=== PATIENT | male | born 1980 | race Caucasian/White ===

== ENCOUNTER 2019-01-13 00:06 | Inpatient (IN) | payer OTHER ==
[2019-01-13 00:30] LABS: ADD MAN DIFF? NO
[2019-01-13 00:32] LABS: WHITE BLOOD COUNT 23.1 10^3/ul (4.8-10.8)
[2019-01-13 00:32] LABS: ABNORMAL IP MESSAGE 1; BASOPHIL # 0.2 10^3/ul (0.0-0.1); BASOPHILS % 0.8 % (0.0-2.0); EOSINOPHILS # 0.1 10^3/ul (0.0-0.5); EOSINOPHILS % 0.4 % (0.0-7.0); HEMATOCRIT 43.9 % (42.0-52.0); LYMPHOCYTES # 3.6 10^3/ul (0.8-2.9); LYMPHOCYTES % 15.6 % (15.0-51.0); MEAN CORPUSCULAR HEMOGLOBIN 29.3 pg (29.0-33.0); MEAN CORPUSCULAR HGB CONC 31.9 g/dl (32.0-37.0); MEAN CORPUSCULAR VOLUME 91.8 fl (82.0-101.0); MEAN PLATELET VOLUME 8.9 fl (7.4-10.4); MONOCYTE # 3.3 10^3/ul (0.3-0.9); MONOCYTES % 14.1 % (0.0-11.0); NEUTROPHIL # 15.5 10^3/ul (1.6-7.5); NEUTROPHILS % 66.9 % (39.0-77.0); PLATELET COUNT 493 10^3/UL (140-415); POSITIVE DIFF @See below; RED BLOOD COUNT 4.78 10^6/ul (4.70-6.10); RED CELL DISTRIBUTION WIDTH 13.7 % (11.5-14.5)
[2019-01-13 00:43] LABS: ALANINE AMINOTRANSFERASE 104 IU/L (13-69); ALBUMIN 4.4 g/dl (3.3-4.9); ALBUMIN/GLOBULIN RATIO 1.25; ALKALINE PHOSPHATASE 74 IU/L (42-121); ANION GAP 13 (5-13); ASPARTATE AMINO TRANSFERASE 88 IU/L (15-46); BILIRUBIN,INDIRECT 0.7 mg/dl (0-1.1); BILIRUBIN,TOTAL 0.7 mg/dl (0.2-1.3); BLOOD UREA NITROGEN 13 mg/dl (7-20); CALCIUM 9.9 mg/dl (8.4-10.2); CARBON DIOXIDE 31 mmol/L (21-31); CHLORIDE 95 mmol/L (97-110); CREATININE 1.09 mg/dl (0.61-1.24); Estimated GFR > 60 mL/min (>60); GLUCOSE 116 mg/dl (70-220); POTASSIUM 5.2 mmol/L (3.5-5.1); SODIUM 139 mmol/L (135-144); TOTAL PROTEIN 7.9 g/dl (6.1-8.1)
[2019-01-13 00:49] LABS: INR 0.81; PROTIME 11.3 Sec (11.9-14.9); PT RATIO 0.9
[2019-01-13 00:50] LABS: PARTIAL THROMBOPLASTIN TIME 21.2 Sec (23.0-35.0)
[2019-01-13] MEDS: morphine 4 MG/ML VIAL IV ×2 (01:02→01:40)
[2019-01-13] MEDS: ONDANSETRON 4 MG INJ IV (01:02)
[2019-01-13] MEDS: SOD CHLORIDE 0.9% 100 ML (01:11)
[2019-01-13] MEDS: IOHEXOL 100 ML (01:12)
[2019-01-13] MEDS ORDERED: ETOMIDATE 20 MG INJ (01:57)
[2019-01-13] MEDS ORDERED: PROPOFOL 100 ML (02:09)
[2019-01-13] MEDS: PROPOFOL 100 ML IV ×6 (02:09→18:30)
[2019-01-13 02:53] LABS: ADD MAN DIFF? NO
[2019-01-13 02:56] LABS: WHITE BLOOD COUNT 16.8 10^3/ul (4.8-10.8)
[2019-01-13 02:56] LABS: ABNORMAL IP MESSAGE 1; BASOPHIL # 0.1 10^3/ul (0.0-0.1); BASOPHILS % 0.5 % (0.0-2.0); EOSINOPHILS # 0.1 10^3/ul (0.0-0.5); EOSINOPHILS % 0.3 % (0.0-7.0); HEMATOCRIT 32.7 % (42.0-52.0); HEMOGLOBIN 10.2 g/dl (14.0-18.0); LYMPHOCYTES # 2.1 10^3/ul (0.8-2.9); LYMPHOCYTES % 12.7 % (15.0-51.0); MEAN CORPUSCULAR HEMOGLOBIN 29.9 pg (29.0-33.0); MEAN CORPUSCULAR HGB CONC 31.2 g/dl (32.0-37.0); MEAN CORPUSCULAR VOLUME 95.9 fl (82.0-101.0); MEAN PLATELET VOLUME 9.2 fl (7.4-10.4); MONOCYTE # 2.4 10^3/ul (0.3-0.9); MONOCYTES % 14.4 % (0.0-11.0); NEUTROPHIL # 11.8 10^3/ul (1.6-7.5); NEUTROPHILS % 70.4 % (39.0-77.0); PLATELET COUNT 324 10^3/UL (140-415); POSITIVE DIFF @See below; RED BLOOD COUNT 3.41 10^6/ul (4.70-6.10); RED CELL DISTRIBUTION WIDTH 13.9 % (11.5-14.5)
[2019-01-13] MEDS: VANCOMYCIN HCL 1.5 GM in SOD CHLORIDE 0.9% 250 ML IVPB ×2 (03:00→16:17)
[2019-01-13] MEDS: SODIUM CHLORIDE 0.9% 1L BAG IV* (03:12)
[2019-01-13 03:14] LABS: ALANINE AMINOTRANSFERASE 73 IU/L (13-69); ALBUMIN 2.9 g/dl (3.3-4.9); ALBUMIN/GLOBULIN RATIO 1.16; ALKALINE PHOSPHATASE 51 IU/L (42-121); ANION GAP 8 (5-13); ASPARTATE AMINO TRANSFERASE 50 IU/L (15-46); BILIRUBIN,INDIRECT 0.3 mg/dl (0-1.1); BILIRUBIN,TOTAL 0.3 mg/dl (0.2-1.3); BLOOD UREA NITROGEN 12 mg/dl (7-20); CALCIUM 7.6 mg/dl (8.4-10.2); CARBON DIOXIDE 23 mmol/L (21-31); CHLORIDE 107 mmol/L (97-110); CREATININE 0.94 mg/dl (0.61-1.24); Estimated GFR > 60 mL/min (>60); GLUCOSE 86 mg/dl (70-220); SODIUM 138 mmol/L (135-144); TOTAL PROTEIN 5.4 g/dl (6.1-8.1)
[2019-01-13 03:17] LABS: LACTIC ACID 2.6 mmol/L (0.5-2.0)
[2019-01-13] MEDS: PIPER-TAZO 3.375 GM IV (PMX) 100 ML IVPB ×4 (03:20→17:29)
[2019-01-13 03:25] LABS: TROPONIN-I < 0.012 ng/ml (0.000-0.120)
[2019-01-13 03:30] LABS: INR 0.99; PROTIME 13.2 Sec (11.9-14.9)
[2019-01-13] MEDS ORDERED: DIPHTH/TET/ACEL PERTUSS (ADULT) 0.5 ML VIAL IM* (03:30)
[2019-01-13 03:32] LABS: PARTIAL THROMBOPLASTIN TIME 23.3 Sec (23.0-35.0)
[2019-01-13] MEDS ORDERED: VANCOMYCIN IV PER PHARMACY XX (04:00)
[2019-01-13 04:19] LABS: HEPATITIS B SURFACE ANTIGEN NEGATIVE (NEGATIVE)
[2019-01-13] MEDS ORDERED: ROCURONIUM 50 MG INJ (04:27)
[2019-01-13] MEDS ORDERED: NA BICARBONATE 8.4% 50 ML SYG (04:27)
[2019-01-13] MEDS ORDERED: DEXAMETHASONE 4 MG/ML 5 ML INJ (04:29)
[2019-01-13] MEDS ORDERED: ONDANSETRON 4 MG INJ (04:29)
[2019-01-13] MEDS ORDERED: FAMOTIDINE 20 MG INJ (04:29)
[2019-01-13 04:36] LABS: HEPATITIS C VIRAL ANTIBODY NEGATIVE (NEGATIVE); HIV 1&2 ANTIBODY NEGATIVE (NEGATIVE)
[2019-01-13 04:42] LABS: IMMEDIATE SPIN CROSSMATCH 1 4
[2019-01-13] MEDS ORDERED: PHENYLephrine (100 MCG/ML) 5ML SYG (04:51)
[2019-01-13 05:06] LABS: HEPATITIS B SURFACE ANTIBODY POSITIVE (NEGATIVE)
[2019-01-13] MEDS ORDERED: NEOMYC/POLYMYX/BACIT 30 GM OINT (05:19)
[2019-01-13] MEDS ORDERED: FENTAnyl 50 MCG/ML VIAL (05:23)
[2019-01-13] MEDS ORDERED: ALBUTEROL 0.083% (NEB) 2.5 MG/3 ML AMP HHN (05:30)
[2019-01-13] MEDS ORDERED: FENTAnyl 50 MCG/ML VIAL IV (05:30)
[2019-01-13] MEDS ORDERED: EPHEDrine SULFATE 50 MG/5 ML SYG IV (05:30)
[2019-01-13] MEDS ORDERED: ONDANSETRON 4 MG INJ IV (05:30)
[2019-01-13] MEDS ORDERED: HYDROmorphONE 0.5 MG/0.5 ML SYG IV (05:30)
[2019-01-13] MEDS: SOD CHLORIDE 0.9% 1,000 ML IV ×3 (06:17→19:47)
[2019-01-13] MEDS ORDERED: HYDROmorphONE 1 MG/ML SYG (06:31)
[2019-01-13] MEDS: PANTOPRAZOLE 40 MG INJ IV (06:34)
[2019-01-13] MEDS: HYDROmorphONE 1 MG/ML SYG IV (06:34)
[2019-01-13] MEDS ORDERED: PROPOFOL 200 MG INJ (07:00)
[2019-01-13] MEDS ORDERED: SUCCINYLCHOLINE CHLORIDE 100 MG/5 ML SYG IV (07:00)
[2019-01-13 07:17] LABS: WHITE BLOOD COUNT 23.2 10^3/ul (4.8-10.8)
[2019-01-13 07:17] LABS: ABNORMAL IP MESSAGE 1; HEMATOCRIT 31.5 % (42.0-52.0); HEMOGLOBIN 9.9 g/dl (14.0-18.0); MEAN CORPUSCULAR HEMOGLOBIN 29.5 pg (29.0-33.0); MEAN CORPUSCULAR HGB CONC 31.4 g/dl (32.0-37.0); MEAN CORPUSCULAR VOLUME 93.8 fl (82.0-101.0); MEAN PLATELET VOLUME 9.1 fl (7.4-10.4); PLATELET COUNT 341 10^3/UL (140-415); POSITIVE DIFF @See below; RED BLOOD COUNT 3.36 10^6/ul (4.70-6.10); RED CELL DISTRIBUTION WIDTH 14.3 % (11.5-14.5)
[2019-01-13 07:27] LABS: ADD MAN DIFF? YES
[2019-01-13 07:37] LABS: ANION GAP 7 (5-13); BLOOD UREA NITROGEN 11 mg/dl (7-20); CARBON DIOXIDE 24 mmol/L (21-31); CHLORIDE 108 mmol/L (97-110); CREATININE 0.82 mg/dl (0.61-1.24); Estimated GFR > 60 mL/min (>60); GLUCOSE 116 mg/dl (70-220); POTASSIUM 4.6 mmol/L (3.5-5.1); SODIUM 139 mmol/L (135-144)
[2019-01-13 07:38] LABS: INR 1.01; PARTIAL THROMBOPLASTIN TIME 25.5 Sec (23.0-35.0); PROTIME 13.4 Sec (11.9-14.9)
[2019-01-13] MEDS: FENTAnyl (DRIP) 1000 mcg/100mL 100 ML IV ×2 (07:41→16:17)
[2019-01-13 07:43] LABS: LACTIC ACID 2.8 mmol/L (0.5-2.0)
[2019-01-13 08:32] LABS: ANISOCYTOSIS 1+ (0-0); BAND NEUTROPHILS #M 3.9 10^3/ul (0.0-0.6); BAND NEUTROPHILS % (M) 17 % (0-4); BASOPHIL #M 0.2 10^3/ul (0.0-0.0); BASOPHILS % (M) 1 % (0-2); LYMPHOCYTES #M 1.6 10^3/ul (0.8-2.9); LYMPHOCYTES % (M) 7 % (15-51); METAMYELOCYTES #M 0.4 10^3/ul (0.0-0.0); METAMYELOCYTES %M 2 % (0-0); MICROCYTOSIS 1+ (0-0); MONOCYTE #M 1.3 10^3/ul (0.3-0.9); MONOCYTES % (M) 6 % (0-11); MYELOCYTES #M 0.2 10^3/ul (0.0-0.0); MYELOCYTES % (M) 1 % (0-0); OVALOCYTES 1+ (0-0); PLATELET ESTIMATE NORMAL; POIKILOCYTOSIS 1+ (0-0); POLYCHROMASIA 1+ (0-0); SEG NEUT #M 16.2 10^3/ul (1.6-7.5); SEGMENTED NEUTROPHILS (M) % 66 % (39-77); SMUDGE%M 4 % (0-0)
[2019-01-13 08:35] LABS: AADO2 Arterial 148.5 mmHg (7.0-24.0); Allen Test ACCEPTAB; Arterial Base Excess -2.5 mmol/L (-3.0-3); Arterial Blood Gas Oxygen Sat 98.4 mmHG (95.0-98.0); Arterial COHb 0.3 % (0.0-3.0); Arterial Fraction of Oxyhgb 97.8 % (93.0-99.0); Arterial HCO3 23.4 mmol/L (22.0-26.0); Arterial MetHb 0.3 % (0.0-1.5); Arterial pCO2 45.3 mmhg (35-45); MODE VENT - AC; Site Right Radial
[2019-01-13 11:40] LABS: ADD UMIC YES; UR ASCORBIC ACID 20 mg/dL (NEGATIVE); UR BILIRUBIN (Dip) NEGATIVE (NEGATIVE); UR BLOOD (Dip) 3+ mg/dL (NEGATIVE); UR CLARITY SLIGHTLY CLOUDY (CLEAR); UR COLOR YELLOW (YELLOW); UR GLUCOSE (Dip) NEGATIVE (NEGATIVE); UR KETONES (Dip) NEGATIVE (NEGATIVE); UR LEUKOCYTE ESTERASE (Dip) NEGATIVE Leu/ul (NEGATIVE); UR NITRITE (Dip) NEGATIVE (NEGATIVE); UR RBC > 182 /HPF (0-5); UR SPECIFIC GRAVITY (Dip) 1.029 (1.003-1.030); UR TOTAL PROTEIN (Dip) NEGATIVE (NEGATIVE); UR UROBILINOGEN (Dip) NEGATIVE (NEGATIVE); UR WBC 2 /HPF (0-5)
[2019-01-13 12:48] LABS: IONIZED CALCIUM 0.9 mmol/L (1.1-1.4)
[2019-01-13] MEDS: MIDAZOLAM (DRIP) 50 mg/50 mL 50 ML IV ×2 (16:13→21:37)
[2019-01-13] MEDS: FAMOTIDINE 20 MG INJ IV (22:07)
[2019-01-13] MEDS: DOCUSATE SODIUM 100 MG CAP PO (22:07)
[2019-01-14] MEDS: PIPER-TAZO 3.375 GM IV (PMX) 100 ML IVPB ×5 (01:05→23:55)
[2019-01-14] MEDS: MIDAZOLAM (DRIP) 50 mg/50 mL 50 ML IV ×5 (01:18→23:55)
[2019-01-14] MEDS: VANCOMYCIN HCL 1.5 GM in SOD CHLORIDE 0.9% 250 ML IVPB ×2 (03:24→15:05)
[2019-01-14] MEDS: FENTAnyl (DRIP) 1000 mcg/100mL 100 ML IV ×2 (03:33→15:00)
[2019-01-14 05:43] LABS: ADD MAN DIFF? NO
[2019-01-14 06:22] LABS: LACTIC ACID 1.6 mmol/L (0.5-2.0)
[2019-01-14] MEDS: PROPOFOL 100 ML IV ×2 (06:30→07:48)
[2019-01-14] MEDS: ONDANSETRON 4 MG INJ IV (06:48)
[2019-01-14 06:51] LABS: POTASSIUM 3.8 mmol/L (3.5-5.1)
[2019-01-14 06:52] LABS: ANION GAP 3 (5-13); BLOOD UREA NITROGEN 16 mg/dl (7-20); CALCIUM 7.2 mg/dl (8.4-10.2); CARBON DIOXIDE 29 mmol/L (21-31); CHLORIDE 106 mmol/L (97-110); CREATININE 0.86 mg/dl (0.61-1.24); Estimated GFR > 60 mL/min (>60); GLUCOSE 110 mg/dl (70-220); MAGNESIUM 2.4 mg/dl (1.7-2.5); PHOSPHORUS 3.3 mg/dl (2.5-4.9); SODIUM 138 mmol/L (135-144)
[2019-01-14 07:02] LABS: ABNORMAL IP MESSAGE 1; BASOPHILS % 0.2 % (0.0-2.0); EOSINOPHILS % 0.1 % (0.0-7.0); HEMATOCRIT 19.4 % (42.0-52.0); LYMPHOCYTES # 1.7 10^3/ul (0.8-2.9); MEAN CORPUSCULAR HEMOGLOBIN 30.1 pg (29.0-33.0); MEAN CORPUSCULAR HGB CONC 32.5 g/dl (32.0-37.0); MEAN CORPUSCULAR VOLUME 92.8 fl (82.0-101.0); MEAN PLATELET VOLUME 9.2 fl (7.4-10.4); MONOCYTE # 1.8 10^3/ul (0.3-0.9); MONOCYTES % 13.7 % (0.0-11.0); NEUTROPHIL # 9.2 10^3/ul (1.6-7.5); NEUTROPHILS % 70.9 % (39.0-77.0); PLATELET COUNT 237 10^3/UL (140-415); POSITIVE DIFF @See below; RED BLOOD COUNT 2.09 10^6/ul (4.70-6.10); RED CELL DISTRIBUTION WIDTH 13.9 % (11.5-14.5)
[2019-01-14 07:14] LABS: HEMOGLOBIN 6.3 g/dl (14.0-18.0)
[2019-01-14 07:26] LABS: AADO2 Arterial 84.6 mmHg (7.0-24.0); Allen Test ACCEPTAB; Arterial Base Excess 6.1 mmol/L (-3.0-3); Arterial Blood Gas Oxygen Sat 98.4 mmHG (95.0-98.0); Arterial COHb 0.3 % (0.0-3.0); Arterial Fraction of Oxyhgb 97.5 % (93.0-99.0); Arterial HCO3 30.9 mmol/L (22.0-26.0); Arterial MetHb 0.6 % (0.0-1.5); Arterial pCO2 46.8 mmhg (35-45); MODE VENT - AC; Site Right Radial
[2019-01-14] MEDS: FAMOTIDINE 20 MG INJ IV ×2 (08:55→21:53)
[2019-01-14] MEDS: DOCUSATE SODIUM 100 MG CAP PO ×2 (08:55→21:53)
[2019-01-14] MEDS: SOD CHLORIDE 0.9% 1,000 ML IV ×2 (10:06→17:54)
[2019-01-14] MEDS: CALCIUM GLUCONATE 10% 2 GM in DEXTROSE 5% 100 ML IVPB (10:38)
[2019-01-14 17:22] LABS: HEMATOCRIT 23.6 % (42.0-52.0); HEMOGLOBIN 7.9 g/dl (14.0-18.0)
[2019-01-15] MEDS: FENTAnyl (DRIP) 1000 mcg/100mL 100 ML IV ×2 (02:13→09:30)
[2019-01-15 03:02] LABS: VANCOMYCIN,TROUGH 13.7 ug/ml (10.0-20.0)
[2019-01-15] MEDS: VANCOMYCIN HCL 1.5 GM in SOD CHLORIDE 0.9% 250 ML IVPB (03:58)
[2019-01-15] MEDS: LORAZEPAM 2 MG INJ IV (04:17)
[2019-01-15] MEDS: MIDAZOLAM (DRIP) 50 mg/50 mL 50 ML IV ×4 (04:19→23:24)
[2019-01-15 05:32] LABS: ADD MAN DIFF? NO
[2019-01-15 05:39] LABS: WHITE BLOOD COUNT 9.3 10^3/ul (4.8-10.8)
[2019-01-15 05:39] LABS: BASOPHILS % 0.3 % (0.0-2.0); EOSINOPHILS # 0.1 10^3/ul (0.0-0.5); EOSINOPHILS % 0.9 % (0.0-7.0); HEMATOCRIT 22.8 % (42.0-52.0); HEMOGLOBIN 7.7 g/dl (14.0-18.0); LYMPHOCYTES # 2.3 10^3/ul (0.8-2.9); LYMPHOCYTES % 24.9 % (15.0-51.0); MEAN CORPUSCULAR HEMOGLOBIN 30.7 pg (29.0-33.0); MEAN CORPUSCULAR HGB CONC 33.8 g/dl (32.0-37.0); MEAN CORPUSCULAR VOLUME 90.8 fl (82.0-101.0); MEAN PLATELET VOLUME 9.6 fl (7.4-10.4); MONOCYTE # 1.2 10^3/ul (0.3-0.9); MONOCYTES % 12.4 % (0.0-11.0); NEUTROPHIL # 5.3 10^3/ul (1.6-7.5); NEUTROPHILS % 57.3 % (39.0-77.0); NUCLEATED RED BLOOD CELLS% 0.2 /100WBC (0.0-0.0); PLATELET COUNT 201 10^3/UL (140-415); RED BLOOD COUNT 2.51 10^6/ul (4.70-6.10); RED CELL DISTRIBUTION WIDTH 14.6 % (11.5-14.5)
[2019-01-15] MEDS: SOD CHLORIDE 0.9% 1,000 ML IV ×2 (05:56→16:00)
[2019-01-15] MEDS: PIPER-TAZO 3.375 GM IV (PMX) 100 ML IVPB ×4 (05:59→23:24)
[2019-01-15 06:15] LABS: MAGNESIUM 2.4 mg/dl (1.7-2.5)
[2019-01-15 06:22] LABS: ALANINE AMINOTRANSFERASE 30 IU/L (13-69); ALBUMIN 2.6 g/dl (3.3-4.9); ALBUMIN/GLOBULIN RATIO 1.04; ALKALINE PHOSPHATASE 40 IU/L (42-121); ANION GAP 6 (5-13); ASPARTATE AMINO TRANSFERASE 17 IU/L (15-46); BILIRUBIN,INDIRECT 0.3 mg/dl (0-1.1); BILIRUBIN,TOTAL 0.3 mg/dl (0.2-1.3); BLOOD UREA NITROGEN 16 mg/dl (7-20); CALCIUM 7.7 mg/dl (8.4-10.2); CARBON DIOXIDE 30 mmol/L (21-31); CHLORIDE 104 mmol/L (97-110); CREATININE 0.99 mg/dl (0.61-1.24); Estimated GFR > 60 mL/min (>60); GLUCOSE 87 mg/dl (70-220); POTASSIUM 3.9 mmol/L (3.5-5.1); SODIUM 140 mmol/L (135-144); TOTAL PROTEIN 5.1 g/dl (6.1-8.1)
[2019-01-15] MEDS: PROPOFOL 100 ML IV ×2 (06:30→18:04)
[2019-01-15] MEDS: DOCUSATE SODIUM 100 MG CAP PO ×2 (09:19→20:45)
[2019-01-15] MEDS: FAMOTIDINE 20 MG INJ IV ×2 (09:28→20:45)
[2019-01-15] MEDS: POTASSIUM PHOSPHATE 15 MM in SOD CHLORIDE 0.9% 250 ML IVPB (17:47)
[2019-01-16] MEDS: PIPER-TAZO 3.375 GM IV (PMX) 100 ML IVPB ×3 (05:26→18:15)
[2019-01-16] MEDS: FENTAnyl (DRIP) 1000 mcg/100mL 100 ML IV (05:31)
[2019-01-16 05:49] LABS: ADD MAN DIFF? NO
[2019-01-16 05:51] LABS: WHITE BLOOD COUNT 8.2 10^3/ul (4.8-10.8)
[2019-01-16 05:51] LABS: BASOPHILS % 0.4 % (0.0-2.0); EOSINOPHILS # 0.1 10^3/ul (0.0-0.5); EOSINOPHILS % 1.3 % (0.0-7.0); HEMATOCRIT 24.6 % (42.0-52.0); HEMOGLOBIN 8.1 g/dl (14.0-18.0); LYMPHOCYTES # 2.4 10^3/ul (0.8-2.9); LYMPHOCYTES % 29.6 % (15.0-51.0); MEAN CORPUSCULAR HEMOGLOBIN 29.8 pg (29.0-33.0); MEAN CORPUSCULAR HGB CONC 32.9 g/dl (32.0-37.0); MEAN CORPUSCULAR VOLUME 90.4 fl (82.0-101.0); MEAN PLATELET VOLUME 9.1 fl (7.4-10.4); MONOCYTE # 0.9 10^3/ul (0.3-0.9); MONOCYTES % 10.8 % (0.0-11.0); NEUTROPHIL # 4.4 10^3/ul (1.6-7.5); NEUTROPHILS % 53.6 % (39.0-77.0); PLATELET COUNT 231 10^3/UL (140-415); RED BLOOD COUNT 2.72 10^6/ul (4.70-6.10); RED CELL DISTRIBUTION WIDTH 14.3 % (11.5-14.5)
[2019-01-16] MEDS: PROPOFOL 100 ML IV ×2 (06:30→18:15)
[2019-01-16] MEDS: MIDAZOLAM (DRIP) 50 mg/50 mL 50 ML IV (06:31)
[2019-01-16 06:56] LABS: ANION GAP 5 (5-13); BLOOD UREA NITROGEN 14 mg/dl (7-20); CALCIUM 8.2 mg/dl (8.4-10.2); CARBON DIOXIDE 29 mmol/L (21-31); CHLORIDE 106 mmol/L (97-110); CREATININE 1.08 mg/dl (0.61-1.24); Estimated GFR > 60 mL/min (>60); GLUCOSE 93 mg/dl (70-220); POTASSIUM 3.7 mmol/L (3.5-5.1); SODIUM 140 mmol/L (135-144)
[2019-01-16 07:02] LABS: PHOSPHORUS 3.5 mg/dl (2.5-4.9)
[2019-01-16 07:02] LABS: MAGNESIUM 2.3 mg/dl (1.7-2.5)
[2019-01-16] MEDS: FAMOTIDINE 20 MG INJ IV ×2 (09:00→21:17)
[2019-01-16 11:43] LABS: AADO2 Arterial 63.6 mmHg (7.0-24.0); Allen Test ACCEPTAB; Arterial Base Excess 4.3 mmol/L (-3.0-3); Arterial Blood Gas Oxygen Sat 97.1 mmHG (95.0-98.0); Arterial COHb 0.3 % (0.0-3.0); Arterial Fraction of Oxyhgb 96.4 % (93.0-99.0); Arterial HCO3 28.9 mmol/L (22.0-26.0); Arterial MetHb 0.4 % (0.0-1.5); Arterial pCO2 43.5 mmhg (35-45); Blood Gas PS 10; MODE VENT - CPAP; Site Right Radial
[2019-01-16] MEDS: DOCUSATE SODIUM 10 MG/ML (10ML CUP) NGT ×2 (12:06→21:00)
[2019-01-16] MEDS: SOD CHLORIDE 0.9% 1,000 ML IV (15:00)
[2019-01-16] MEDS: ONDANSETRON 4 MG INJ IV (16:33)
[2019-01-16] MEDS: LORAZEPAM 2 MG INJ IV (21:17)
[2019-01-17] MEDS: PIPER-TAZO 3.375 GM IV (PMX) 100 ML IVPB ×5 (00:02→23:29)
[2019-01-17] MEDS: HALOPERIDOL 5 MG INJ IM (01:08)
[2019-01-17 06:30] LABS: ADD MAN DIFF? NO
[2019-01-17 06:33] LABS: WHITE BLOOD COUNT 11.8 10^3/ul (4.8-10.8)
[2019-01-17 06:33] LABS: BASOPHILS % 0.3 % (0.0-2.0); EOSINOPHILS # 0.1 10^3/ul (0.0-0.5); EOSINOPHILS % 0.7 % (0.0-7.0); LYMPHOCYTES % 17.1 % (15.0-51.0); MEAN CORPUSCULAR HEMOGLOBIN 29.4 pg (29.0-33.0); MEAN CORPUSCULAR HGB CONC 33.3 g/dl (32.0-37.0); MEAN CORPUSCULAR VOLUME 88.2 fl (82.0-101.0); MEAN PLATELET VOLUME 8.7 fl (7.4-10.4); MONOCYTE # 1.1 10^3/ul (0.3-0.9); MONOCYTES % 9.2 % (0.0-11.0); NEUTROPHIL # 8.1 10^3/ul (1.6-7.5); NEUTROPHILS % 68.5 % (39.0-77.0); PLATELET COUNT 333 10^3/UL (140-415); RED BLOOD COUNT 3.06 10^6/ul (4.70-6.10); RED CELL DISTRIBUTION WIDTH 13.4 % (11.5-14.5)
[2019-01-17 07:06] LABS: ANION GAP 8 (5-13); BLOOD UREA NITROGEN 13 mg/dl (7-20); CALCIUM 8.9 mg/dl (8.4-10.2); CARBON DIOXIDE 30 mmol/L (21-31); CHLORIDE 103 mmol/L (97-110); CREATININE 0.84 mg/dl (0.61-1.24); Estimated GFR > 60 mL/min (>60); GLUCOSE 85 mg/dl (70-220); MAGNESIUM 2.4 mg/dl (1.7-2.5); PHOSPHORUS 5.1 mg/dl (2.5-4.9); POTASSIUM 3.8 mmol/L (3.5-5.1); SODIUM 141 mmol/L (135-144)
[2019-01-17] MEDS: FAMOTIDINE 20 MG INJ IV ×2 (08:54→20:29)
[2019-01-17] MEDS: DOCUSATE SODIUM 10 MG/ML (10ML CUP) PO ×3 (08:54→20:29)
[2019-01-17] MEDS: morphine 2 MG INJ IV (09:35)
[2019-01-17] MEDS: ONDANSETRON 4 MG INJ IV (13:12)
[2019-01-17] MEDS: HYDROCODONE/APAP (5/325) TAB PO (13:18)
[2019-01-17] MEDS: ZOLPIDEM 5 MG TAB PO (23:29)
[2019-01-18] MEDS: PIPER-TAZO 3.375 GM IV (PMX) 100 ML IVPB (06:09)
[2019-01-18 06:11] LABS: ADD MAN DIFF? NO
[2019-01-18 06:19] LABS: WHITE BLOOD COUNT 10.9 10^3/ul (4.8-10.8)
[2019-01-18 06:19] LABS: BASOPHIL # 0.1 10^3/ul (0.0-0.1); BASOPHILS % 0.5 % (0.0-2.0); EOSINOPHILS # 0.2 10^3/ul (0.0-0.5); HEMATOCRIT 28.8 % (42.0-52.0); HEMOGLOBIN 9.7 g/dl (14.0-18.0); LYMPHOCYTES # 2.1 10^3/ul (0.8-2.9); LYMPHOCYTES % 19.6 % (15.0-51.0); MEAN CORPUSCULAR HEMOGLOBIN 29.8 pg (29.0-33.0); MEAN CORPUSCULAR HGB CONC 33.7 g/dl (32.0-37.0); MEAN CORPUSCULAR VOLUME 88.6 fl (82.0-101.0); MONOCYTES % 9.4 % (0.0-11.0); NEUTROPHILS % 64.6 % (39.0-77.0); PLATELET COUNT 361 10^3/UL (140-415); RED BLOOD COUNT 3.25 10^6/ul (4.70-6.10); RED CELL DISTRIBUTION WIDTH 13.3 % (11.5-14.5)
[2019-01-18 06:59] LABS: ANION GAP 7 (5-13); BLOOD UREA NITROGEN 10 mg/dl (7-20); CALCIUM 8.9 mg/dl (8.4-10.2); CARBON DIOXIDE 29 mmol/L (21-31); CHLORIDE 105 mmol/L (97-110); CREATININE 0.94 mg/dl (0.61-1.24); Estimated GFR > 60 mL/min (>60); GLUCOSE 117 mg/dl (70-220); MAGNESIUM 2.5 mg/dl (1.7-2.5); POTASSIUM 3.2 mmol/L (3.5-5.1); SODIUM 141 mmol/L (135-144)
[2019-01-18] MEDS: POTASSIUM CHLORIDE (SR) 20 MEQ TAB PO (10:13)
[2019-01-18] MEDS: FAMOTIDINE 20 MG INJ IV (10:14)
[2019-01-18] MEDS: DOCUSATE SODIUM 10 MG/ML (10ML CUP) PO (10:14)
[2019-01-18] MEDS: AMPICILLIN/SULB 3 GM/NS (PMX) 100 ML IVPB (12:00)
== END 2019-01-18 13:17 | disposition home or self-care (01) | DRG 907 ==
LOC: 6WM 01-17 01:23 → E/R 00:06 → ICU 03:50 → 6WM 01-17 01:26 → PP2 01-17 17:07 → ICU 02:25
PROC: 0W320ZZ Control Bleeding in Face, Open Approach (ICD-10-PCS; principal; 2019-01-13 03:00)
PROC: 0W360ZZ Control Bleeding in Neck, Open Approach (ICD-10-PCS; 2019-01-13 03:00)
PROC: 5A1945Z Respiratory Ventilation, 24-96 Consecutive Hours (ICD-10-PCS; 2019-01-13 04:00)
PROC: 0BH17EZ Insertion of Endotracheal Airway into Trachea, Via Natural or Artificial Opening (ICD-10-PCS; 2019-01-13 04:00)
PROC: 30233N1 Transfusion of Nonautologous Red Blood Cells into Peripheral Vein, Percutaneous Approach (ICD-10-PCS; 2019-01-13 04:00)
PROC: 0TPB70Z Removal of Drainage Device from Bladder, Via Natural or Artificial Opening (ICD-10-PCS; 2019-01-13 04:00)
PROC: 0T9B70Z Drainage of Bladder with Drainage Device, Via Natural or Artificial Opening (ICD-10-PCS; 2019-01-13 04:00)
DX: L76.22 Postprocedural hemorrhage of skin and subcutaneous tissue following other procedure (principal); J96.00 Acute respiratory failure, unspecified whether with hypoxia or hypercapnia; A41.9 Sepsis, unspecified organism; R65.20 Severe sepsis without septic shock; T81.31XA Disruption of external operation (surgical) wound, not elsewhere classified, initial encounter; T81.49XA Infection following a procedure, other surgical site, initial encounter; D62 Acute posthemorrhagic anemia; L76.32 Postprocedural hematoma of skin and subcutaneous tissue following other procedure; B95.0 Streptococcus, group A, as the cause of diseases classified elsewhere; J45.909 Unspecified asthma, uncomplicated; R31.9 Hematuria, unspecified; R22.1 Localized swelling, mass and lump, neck; Y83.8 Other surgical procedures as the cause of abnormal reaction of the patient, or of later complication, without mention of misadventure at the time of the procedure
CPT/HCPCS: 31500; 36415; 36430; 36600; 70498; 71045; 80048; 80053; 80202; 81001; 82330; 82803; 83605; 83735; 84100; 84484; 85014; 85018; 85025; 85610; 85730; 86703; 86706; 86803; 86850; 86900; 86901; 86920; 87040; 87070; 87086; 87340; 90715; 93005; 94002; 94003; 94770; 96374; 96375; 96376; 97162; 99291-25